=== PATIENT | female | born 1935 | race Caucasian/White ===

== ENCOUNTER → 2016-07-13 | Outpatient (CLI) | payer MEDICARE, BC ==
[~2016-07-13] MED LIST: ASPI-624 PO; ATOR40TA78 PO; CLOP75TA PO; ESOM40CA PO; HYDR12.53 PO; LISI-170 PO; LOSA25TA5 PO; NITR0.3T SL; PARO10TA3 PO; POTA10PI2 PO; POTA10TA5 PO; SERT50TA5 PO
== END | disposition home or self-care (01) ==
LOC: CFH 09:00
PROVIDERS: ATTEND Obstetrics & Gynecology Gynecology
DX: Z12.31 Encounter for screening mammogram for malignant neoplasm of breast (principal)
CPT/HCPCS: G0202

== ENCOUNTER 2016-08-12 08:17 | Emergency (ER) | payer MEDICARE, BC ==
[~2016-08-12] VITALS: Ht 149.9 cm; Wt 44.8 kg
[2016-08-12] MEDS ORDERED: LIDO1ADH44 TP (08:43)
[2016-08-12] MEDS ORDERED: ESOM40CA PO (08:44)
[2016-08-12] MEDS ORDERED: SODIUM CHLORIDE FLUSH 10ML SYR IVF ONE (09:30)
[2016-08-12 10:03] LABS: BLOOD UREA NITROGEN 19 mg/dL (7-18)
[2016-08-12 10:04] LABS: IS PT STATUS REG ER OR PRE ER? YES
[2016-08-12 10:44] VITALS: BP 126/67
[2016-08-14] MEDS ORDERED: CALC-46 PO (15:03)
[2016-08-14] MEDS ORDERED: AREDS FORMULA PO (15:03)
[2016-08-14] MEDS ORDERED: UBID100C11 PO (15:06)
[2016-08-14] MEDS ORDERED: LACT1CAP40 PO (15:06)
[2016-08-14] MEDS ORDERED: Omega PO (15:06)
[2016-08-15] MEDS ORDERED: METO25TA9 PO (09:30)
== END 2016-08-12 10:47 | disposition home or self-care (01) ==
LOC: ED 08:29
DX: R07.89 Other chest pain (principal); Z95.5 Presence of coronary angioplasty implant and graft; Z88.0 Allergy status to penicillin; Z79.82 Long term (current) use of aspirin; K21.9 Gastro-esophageal reflux disease without esophagitis; I25.2 Old myocardial infarction; I25.110 Atherosclerotic heart disease of native coronary artery with unstable angina pectoris; I10 Essential (primary) hypertension; E78.00 Pure hypercholesterolemia, unspecified; E03.9 Hypothyroidism, unspecified; Z88.8 Allergy status to other drugs, medicaments and biological substances
CPT/HCPCS: 36415; 71010; 80048; 82040; 84484; 85025; 93005; 99285

== ENCOUNTER 2016-12-21 12:04 | Observation (INO) | payer MEDICARE, BC ==
[~2016-12-21] VITALS: Ht 149.9 cm; Wt 45.4 kg
[~2016-12-21 12:04] MED LIST changes: +AREDS FORMULA PO; +CALC-46 PO; +LACT1CAP40 PO; +LIDO1ADH44 TP; +METO-282 PO; +Omega PO; +UBID100C41 PO
[2016-12-21] MEDS ORDERED: ASPIRIN 81 MG TABLET CHEW PO ONE (13:00)
[2016-12-21 13:10] LABS: HEMATOCRIT 34.5 % (34.6-47.8); HEMOGLOBIN 11.5 g/dL (11.7-16.4); WHITE BLOOD COUNT 8.6 x10^3/uL (3.4-10)
[2016-12-21 13:20] LABS: ASPARTATE AMINO TRANSFERASE 18 U/L (15-37); BLOOD UREA NITROGEN 16 mg/dL (7-18)
[2016-12-21 13:25] LABS: IS PT STATUS REG ER OR PRE ER? YES
[2016-12-21] MEDS ORDERED: ASPIRIN 81 MG TABLET CHEW ONE (14:05)
[2016-12-21] MEDS ORDERED: SODIUM CHLORIDE FLUSH 10ML SYR IVF PRN (15:30)
[2016-12-21] MEDS ORDERED: ONDANSETRON 2MG/ML, 2ML IVPush PRN (16:00)
[2016-12-21] MEDS ORDERED: HYDROcodone/APAP 5/325 TABLET PO PRN (16:00)
[2016-12-21] MEDS ORDERED: POLYETHYLENE GLYCOL 17 GM PACKET PO PRN (16:00)
[2016-12-21] MEDS ORDERED: LABETALOL 5MG/ML, 20ML IVPush PRN (16:00)
[2016-12-21] MEDS ORDERED: GUAIFENESIN/DM 200-20MG, 10ML UDC PO PRN (16:00)
[2016-12-21] MEDS ORDERED: morphine SULFATE 10 MG/ML, 1ML IVPush PRN (16:00)
[2016-12-21] MEDS ORDERED: ONDANSETRON ODT 4 MG PO PRN (16:00)
[2016-12-21 16:48] VITALS: BP 159/86
[2016-12-21] MEDS: ENOXAPARIN 40 MG/0.4 ML SQ SCH (16:57)
[2016-12-21] MEDS: SODIUM CHLORIDE 0.9% 1,000 ML IV SCH (16:57)
[2016-12-21 19:26] LABS: IS PT STATUS REG ER OR PRE ER? NO
[2016-12-21 20:54] VITALS: BP 144/72
[2016-12-21] MEDS: CALCIUM/VITAMIN D3 250-125 TABLET PO SCH (21:00)
[2016-12-21] MEDS ORDERED: METOPROLOL SUCCINATE 25 MG TAB.ER.24H PO SCH (21:00)
[2016-12-21] MEDS ORDERED: ATORVASTATIN 40 MG TABLET PO SCH (21:00)
[2016-12-21] MEDS: PANTOPRAZOLE 40 MG IV IVPush SCH (21:13)
[2016-12-22 01:22] VITALS: BP 139/78
[2016-12-22 01:35] LABS: IS PT STATUS REG ER OR PRE ER? NO
[2016-12-22] MEDS: SODIUM CHLORIDE 0.9% 1,000 ML IV SCH (03:57)
[2016-12-22 05:38] LABS: HEMATOCRIT 31.2 % (34.6-47.8); HEMOGLOBIN 10.4 g/dL (11.7-16.4); WHITE BLOOD COUNT 5.6 x10^3/uL (3.4-10)
[2016-12-22 06:08] LABS: BLOOD UREA NITROGEN 17 mg/dL (7-18)
[2016-12-22 06:09] LABS: ASPARTATE AMINO TRANSFERASE 15 U/L (15-37)
[2016-12-22 07:10] VITALS: BP 144/79
[2016-12-22 07:32] VITALS: BP 162/86
[2016-12-22] MEDS ORDERED: ASPIRIN 81 MG TABLET EC ONE (07:37)
[2016-12-22] MEDS ORDERED: CLOPIDOGREL 75 MG TABLET ONE (07:38)
[2016-12-22] MEDS ORDERED: LOSARTAN 25MG TABLET ONE (07:40)
[2016-12-22] MEDS: PANTOPRAZOLE 40 MG IV IVPush SCH (07:42)
[2016-12-22] MEDS ORDERED: NITROGLYCERIN 0.4 MG BOTTLE (25 TABS) SL ONE (07:53)
[2016-12-22] MEDS ORDERED: LISI-170 PO (07:54)
[2016-12-22] MEDS: CALCIUM/VITAMIN D3 250-125 TABLET PO SCH (07:55)
[2016-12-22] MEDS ORDERED: NITROGLYCERIN 0.4 MG BOTTLE (25 TABS) SL PRN (08:00)
[2016-12-22] MEDS ORDERED: NITROGLYCERIN 0.4 MG/SPRAY SL PRN (08:00)
[2016-12-22] MEDS ORDERED: ASPIRIN 81 MG TABLET EC PO SCH (09:00)
[2016-12-22] MEDS ORDERED: CLOPIDOGREL 75 MG TABLET PO SCH (09:00)
[2016-12-22] MEDS ORDERED: HYDROCHLOROTHIAZIDE 12.5 MG CAPSULE PO SCH (09:00)
[2016-12-22] MEDS ORDERED: SENNA/DOCUSATE TABLET PO SCH (09:00)
[2016-12-22] MEDS ORDERED: LOSARTAN 25MG TABLET PO SCH (09:00)
[2016-12-22 09:41] LABS: IS PT STATUS REG ER OR PRE ER? NO
[2016-12-22 13:41] VITALS: BP 147/80
[2016-12-22] MEDS ORDERED: LOSA25TA2 PO (14:31)
[2016-12-22] MEDS ORDERED: METO25TA91 PO (14:31)
[2016-12-22] MEDS: ENOXAPARIN 40 MG/0.4 ML SQ SCH (16:00)
== END 2016-12-22 16:20 | disposition home or self-care (01) ==
LOC: ED 15:12 → INTOOBSV 15:13 → EDIP 15:13 → ED 15:57 → 5SO 17:01 → DCLOUNGE 12-22 16:06
PROVIDERS: ADMIT Hospitalist; ATTEND Hospitalist
DX: R07.89 Other chest pain (principal); R10.9 Unspecified abdominal pain; I27.20 Pulmonary hypertension, unspecified; K21.9 Gastro-esophageal reflux disease without esophagitis; E78.5 Hyperlipidemia, unspecified; I10 Essential (primary) hypertension; E03.9 Hypothyroidism, unspecified; I25.10 Atherosclerotic heart disease of native coronary artery without angina pectoris; F41.1 Generalized anxiety disorder; D64.9 Anemia, unspecified; E78.00 Pure hypercholesterolemia, unspecified; I25.2 Old myocardial infarction; I35.1 Nonrheumatic aortic (valve) insufficiency; I65.29 Occlusion and stenosis of unspecified carotid artery; I73.9 Peripheral vascular disease, unspecified; Z66 Do not resuscitate; Z82.3 Family history of stroke; Z87.891 Personal history of nicotine dependence; Z95.5 Presence of coronary angioplasty implant and graft
CPT/HCPCS: 36415; 71010; 80053; 83735; 84439; 84443; 84484; 85025; 93005; 93306; 96361; 96372; 96374; 96375; 96376; 99285; C9113; G0378; J1650; J2405; J7030

== ENCOUNTER 2017-01-19 13:45 | Emergency (ER) | payer MEDICARE, BC ==
[~2017-01-19] VITALS: Ht 149.9 cm; Wt 44.0 kg
[~2017-01-19 13:45] MED LIST changes: +LOSA25TA2 PO; +METO25TA91 PO
[2017-01-19] MEDS ORDERED: ONDANSETRON 2MG/ML, 2ML ONE (14:29)
[2017-01-19] MEDS ORDERED: MAALOX/HYOSCYAMINE/LIDOCAINE 45 ML BTL ONE (14:29)
[2017-01-19] MEDS ORDERED: ONDANSETRON 2MG/ML, 2ML IVPush ONE (14:30)
[2017-01-19] MEDS ORDERED: MAALOX/HYOSCYAMINE/LIDOCAINE 45 ML BTL PO ONE (14:30)
[2017-01-19] MEDS ORDERED: PANT40TA5 PO (14:42)
[2017-01-19] MEDS ORDERED: ISOS30TA8 PO (14:42)
[2017-01-19 15:10] LABS: HEMATOCRIT 33.8 % (34.6-47.8); HEMOGLOBIN 11.3 g/dL (11.7-16.4)
[2017-01-19 15:12] LABS: ASPARTATE AMINO TRANSFERASE 16 U/L (15-37); BLOOD UREA NITROGEN 14 mg/dL (7-18)
[2017-01-19 15:17] LABS: IS PT STATUS REG ER OR PRE ER? YES
[2017-01-19 16:15] VITALS: BP 156/79
== END 2017-01-19 17:06 | disposition home or self-care (01) ==
LOC: ED 15:02
DX: R10.13 Epigastric pain (principal); R11.0 Nausea; K21.9 Gastro-esophageal reflux disease without esophagitis; E78.00 Pure hypercholesterolemia, unspecified; I10 Essential (primary) hypertension; I25.110 Atherosclerotic heart disease of native coronary artery with unstable angina pectoris; I25.2 Old myocardial infarction; E03.9 Hypothyroidism, unspecified; E78.5 Hyperlipidemia, unspecified; Z88.0 Allergy status to penicillin; Z88.8 Allergy status to other drugs, medicaments and biological substances; Z87.891 Personal history of nicotine dependence
CPT/HCPCS: 36415; 71010; 74176; 80053; 83880; 84484; 85025; 85610; 85730; 93005; 96374; 99285; J2405

== ENCOUNTER 2017-01-25 07:47 | Emergency (ER) | payer MEDICARE, BC ==
[~2017-01-25] VITALS: Ht 149.9 cm; Wt 43.4 kg
[~2017-01-25 07:47] MED LIST changes: +ISOS30TA8 PO; +PANT40TA5 PO
[2017-01-25] MEDS ORDERED: POTA10CA PO (08:15)
[2017-01-25] MEDS ORDERED: SODIUM CHLORIDE FLUSH 10ML SYR IVF ONE (08:30)
[2017-01-25 08:46] LABS: HEMATOCRIT 34.1 % (34.6-47.8); HEMOGLOBIN 11.4 g/dL (11.7-16.4); WHITE BLOOD COUNT 5.2 x10^3/uL (3.4-10)
[2017-01-25 08:59] LABS: ASPARTATE AMINO TRANSFERASE 21 U/L (15-37); BLOOD UREA NITROGEN 19 mg/dL (7-18)
[2017-01-25 09:04] LABS: IS PT STATUS REG ER OR PRE ER? YES
[2017-01-25 11:48] VITALS: BP_SYST 108
== END 2017-01-25 11:55 | disposition home or self-care (01) ==
LOC: ED 08:28
DX: K29.00 Acute gastritis without bleeding (principal); K21.9 Gastro-esophageal reflux disease without esophagitis
CPT/HCPCS: 36415; 71010; 72110; 80053; 81001; 83690; 84484; 85025; 85379; 87086; 87147; 93005; 99285

== ENCOUNTER → 2017-02-19 | Outpatient (CLI) | payer MEDICARE, BC ==
[~2017-02-19] MED LIST changes: +POTA10CA PO
== END | disposition home or self-care (01) ==
LOC: PETCFH 13:15
PROVIDERS: ATTEND Internal Medicine
DX: R10.10 Upper abdominal pain, unspecified (principal)
CPT/HCPCS: 78227; A9537

== ENCOUNTER → 2017-03-15 | Outpatient (CLI) | payer MEDICARE, BC ==
[2017-03-15 10:29] LABS: ANION GAP 6 mmol/L (5-15); CALCIUM 8.3 mg/dL (8.5-10.1); CHLORIDE 101 mmol/L (98-107); CREATININE 1.05 mg/dL (0.55-1.02)
== END | disposition home or self-care (01) ==
LOC: LAB 10:03
PROVIDERS: ATTEND Anesthesiology
DX: K82.8 Other specified diseases of gallbladder (principal)
CPT/HCPCS: 36415; 80048

== ENCOUNTER → 2017-05-12 | Outpatient (CLI) | payer MEDICARE, BC ==
[2017-05-12 09:02] LABS: ALANINE AMINOTRANSFERASE 24 U/L (12-78); ALBUMIN 3.7 g/dL (3.4-5.0); ANION GAP 8 mmol/L (5-15); CALCIUM 9.5 mg/dL (8.5-10.1); CHLORIDE 102 mmol/L (98-107); CHOLESTEROL, TOTAL 134 mg/dL (140-239)
[2017-05-12 09:05] LABS: ALKALINE PHOSPHATASE 84 U/L (45-117); BILIRUBIN,TOTAL 0.5 mg/dL (0.2-1.0); CHOL/HDL RATIO 2.2; HDL CHOL % 46 % (28-40); HDL CHOLESTEROL (DIRECT) 62 mg/dL (40-60); LDL CHOLESTEROL,CALCULATED 50 mg/dL (54-169); LDL/HDL RATIO 0.8 (0.5-3.0); TOTAL PROTEIN 7.5 g/dL (6.4-8.2); TRIGLYCERIDES 109 mg/dL (50-200); VLDL CHOLESTEROL 22 mg/dL (0-25)
== END ==
LOC: LAB 08:37
PROVIDERS: ATTEND Internal Medicine Cardiovascular Disease
DX: I10 Essential (primary) hypertension (principal); E78.00 Pure hypercholesterolemia, unspecified
CPT/HCPCS: 36415; 80053; 80061

== ENCOUNTER → 2017-07-15 | Outpatient (CLI) | payer MEDICARE, BC | END | disposition home or self-care (01) | LOC: CFH 09:39 | PROVIDERS: ATTEND Obstetrics & Gynecology Gynecology | DX: Z12.31 Encounter for screening mammogram for malignant neoplasm of breast (principal) | CPT/HCPCS: 77067 ==

== ENCOUNTER 2017-08-30 09:32 | Emergency (ER) | payer MEDICARE, BC ==
[~2017-08-30] VITALS: Ht 149.9 cm; Wt 43.0 kg
[2017-08-30] MEDS ORDERED: LIDOCAINE 2%, 10ML INFIL ONE (11:00)
[2017-08-30] MEDS ORDERED: LIDOCAINE-MPF 2% ,5ML ONE (11:05)
[2017-08-30 11:19] LABS: BASOPHILS # (AUTO) 0.04 x10^3/uL (0-0.1); BASOPHILS % (AUTO) 1 % (0-1); EOSINOPHILS # (AUTO) 0.14 x10^3/uL (0-0.4); EOSINOPHILS % (AUTO) 2 % (1-7); LYMPHOCYTES # (AUTO) 1.99 x10^3/uL (1-3.4); LYMPHOCYTES % (AUTO) 28 % (22-44); MD NO; MEAN CORPUSCULAR HEMOGLOBIN 31.8 pg (27.0-34.8); MEAN CORPUSCULAR HGB CONC 34.4 g/dL (32.4-35.8); MEAN CORPUSCULAR VOLUME 92.3 fL (80-100); MONOCYTES # (AUTO) 0.61 x10^3/uL (0.2-0.8); MONOCYTES % (AUTO) 9 % (2-9); NEUTROPHILS # (AUTO) 4.25 x10^3/uL (1.8-6.8); NEUTROPHILS % (AUTO) 61 % (42-75); PLATELET COUNT 196 x10^3/uL (130-400); RED BLOOD COUNT 3.81 x10^6/uL (3.82-5.3); RED CELL DISTRIBUTION WIDTH 13.5 % (9.6-15.2)
[2017-08-30 11:22] LABS: HCT (SEDRATE) 35.2 % (34.6-47.8)
[2017-08-30 11:31] LABS: ALBUMIN 3.5 g/dL (3.4-5.0); ANION GAP 4 mmol/L (5-15); CALCIUM 9.2 mg/dL (8.5-10.1); CHLORIDE 100 mmol/L (98-107)
[2017-08-30 11:34] LABS: ALANINE AMINOTRANSFERASE 31 U/L (12-78); ALKALINE PHOSPHATASE 106 U/L (45-117); BILIRUBIN,TOTAL 0.5 mg/dL (0.2-1.0); C-REACTIVE PROTEIN, QUANT 0.05 mg/dL (0.02-0.49); CREATININE 1.16 mg/dL (0.55-1.02); INTERNATIONAL NORMALIZED RATIO 0.98 (0.93-1.1); PROTHROMBIN TIME 10.2 Seconds (9.6-11.5); TOTAL PROTEIN 7.1 g/dL (6.4-8.2)
[2017-08-30 12:43] VITALS: BP 133/62
== END 2017-08-30 12:47 | disposition home or self-care (01) ==
LOC: ED 12:41
DX: G44.209 Tension-type headache, unspecified, not intractable (principal); M54.81 Occipital neuralgia; I10 Essential (primary) hypertension
CPT/HCPCS: 36415; 64405; 70450; 72125; 80053; 85025; 85610; 85651; 85730; 86140; 99285

== ENCOUNTER 2017-09-03 12:35 | Emergency (ER) | payer MEDICARE, BC ==
[~2017-09-03] VITALS: Ht 149.9 cm; Wt 45.0 kg
[2017-09-03 12:45] VITALS: BP 144/68
[2017-09-03] MEDS ORDERED: LIDODERM 5% PATCH TD ONE (15:00)
== END 2017-09-03 14:35 | disposition home or self-care (01) ==
LOC: ED 13:10
DX: G44.229 Chronic tension-type headache, not intractable (principal); I11.9 Hypertensive heart disease without heart failure; E78.5 Hyperlipidemia, unspecified; E03.9 Hypothyroidism, unspecified; I25.10 Atherosclerotic heart disease of native coronary artery without angina pectoris; E78.00 Pure hypercholesterolemia, unspecified; K21.9 Gastro-esophageal reflux disease without esophagitis; I25.2 Old myocardial infarction
CPT/HCPCS: 99283

== ENCOUNTER → 2017-12-02 | Outpatient (CLI) | payer MEDICARE, BC ==
[~2017-12-02] MED LIST changes: -LOSA25TA5 PO; +LOSA25TA6 PO
== END | disposition home or self-care (01) ==
LOC: CVU 11:38
PROVIDERS: ATTEND Surgery Vascular Surgery
DX: I65.23 Occlusion and stenosis of bilateral carotid arteries (principal); I25.2 Old myocardial infarction
CPT/HCPCS: 93880

== ENCOUNTER → 2018-02-09 | Outpatient (CLI) | payer MEDICARE, BC ==
[~2018-02-09] MED LIST changes: +HYDR12.517 PO; -HYDR12.53 PO; +LOSA25TA25 PO; -LOSA25TA6 PO
[2018-02-09 08:41] LABS: FREE T4 (FREE THYROXINE) 0.89 ng/dL (0.76-1.46); THYROID STIMULATING HORMONE 2.28 mIU/L (0.358-3.740)
== END | disposition home or self-care (01) ==
LOC: LAB 08:02
PROVIDERS: ATTEND Family Medicine
DX: E78.5 Hyperlipidemia, unspecified (principal)
CPT/HCPCS: 36415; 84439; 84443; 84480

== ENCOUNTER 2018-02-16 10:05 | Outpatient (CLI) | payer MEDICARE, BC ==
[~2018-02-16 10:05] MED LIST changes: +SERT50TA28 PO; -SERT50TA5 PO
== END 2018-02-16 23:59 | disposition home or self-care (01) ==
LOC: LAB 10:05
PROVIDERS: ATTEND Internal Medicine Gastroenterology
DX: R12 Heartburn (principal); R19.7 Diarrhea, unspecified; F10.10 Alcohol abuse, uncomplicated
CPT/HCPCS: 82274

== ENCOUNTER → 2018-02-28 | Outpatient (CLI) | payer MEDICARE, BC ==
[2018-02-28 08:06] LABS: CHOL/HDL RATIO 2.4; LDL/HDL RATIO 0.9 (0.5-3.0)
== END | disposition home or self-care (01) ==
LOC: LAB 07:38
PROVIDERS: ATTEND Internal Medicine Cardiovascular Disease
DX: I65.23 Occlusion and stenosis of bilateral carotid arteries (principal); E78.5 Hyperlipidemia, unspecified
CPT/HCPCS: 36415; 80061

== ENCOUNTER → 2018-03-08 | Outpatient (CLI) | payer MEDICARE, BC ==
[2018-03-08 07:37] LABS: ALBUMIN 3.8 g/dL (3.4-5.0); ANION GAP 2 mmol/L (5-15); CALCIUM 9.7 mg/dL (8.5-10.1); CHLORIDE 103 mmol/L (98-107)
[2018-03-08 07:41] LABS: ALANINE AMINOTRANSFERASE 30 U/L (12-78); ALKALINE PHOSPHATASE 103 U/L (45-117); BILIRUBIN,TOTAL 0.7 mg/dL (0.2-1.0); CREATININE 1.14 mg/dL (0.55-1.02); TOTAL PROTEIN 7.8 g/dL (6.4-8.2)
== END | disposition home or self-care (01) ==
LOC: LAB 07:15
PROVIDERS: ATTEND Internal Medicine Cardiovascular Disease
DX: I10 Essential (primary) hypertension (principal)
CPT/HCPCS: 36415; 80053

== ENCOUNTER → 2018-06-14 | Outpatient (CLI) | payer MEDICARE, BC ==
[2018-06-14 08:31] LABS: MEAN CORPUSCULAR HEMOGLOBIN 28.5 pg (27.0-34.8); MEAN CORPUSCULAR HGB CONC 31.5 g/dL (32.4-35.8); MEAN CORPUSCULAR VOLUME 90.6 fL (80-100); MEAN PLATELET VOLUME 6.9 fL (7.4-10.4); PLATELET COUNT 229 x10^3/uL (130-400); RED BLOOD COUNT 4.18 x10^6/uL (3.82-5.3); RED CELL DISTRIBUTION WIDTH 15.3 % (9.6-15.2)
[2018-06-14 08:41] LABS: ALANINE AMINOTRANSFERASE 34 U/L (12-78); ANION GAP 6 mmol/L (5-15); CALCIUM 9.1 mg/dL (8.5-10.1); CHLORIDE 99 mmol/L (98-107); CHOLESTEROL, TOTAL 148 mg/dL (140-239); CREATININE 1.15 mg/dL (0.55-1.02)
[2018-06-14 08:43] LABS: ALKALINE PHOSPHATASE 123 U/L (45-117); BILIRUBIN,TOTAL 0.5 mg/dL (0.2-1.0); CHOL/HDL RATIO 2.1; HDL CHOL % 47 % (28-40); HDL CHOLESTEROL (DIRECT) 70 mg/dL (40-60); LDL CHOLESTEROL,CALCULATED 55 mg/dL (54-169); LDL/HDL RATIO 0.8 (0.5-3.0); TOTAL PROTEIN 7.5 g/dL (6.4-8.2); TRIGLYCERIDES 116 mg/dL (50-200); VLDL CHOLESTEROL 23 mg/dL (0-25)
== END | disposition home or self-care (01) ==
LOC: LAB 08:15
PROVIDERS: ATTEND Internal Medicine Cardiovascular Disease
DX: I65.23 Occlusion and stenosis of bilateral carotid arteries (principal); E78.5 Hyperlipidemia, unspecified; I25.10 Atherosclerotic heart disease of native coronary artery without angina pectoris; I25.83 Coronary atherosclerosis due to lipid rich plaque; I10 Essential (primary) hypertension
CPT/HCPCS: 36415; 80053; 80061; 85027

== ENCOUNTER 2018-08-19 11:57 | Emergency (ER) | payer MEDICARE, BC ==
[~2018-08-19] VITALS: Ht 149.9 cm; Wt 46.8 kg
[2018-08-19] MEDS ORDERED: ASPIRIN 81 MG TABLET CHEW PO ONE (12:30)
[2018-08-19] MEDS ORDERED: SODIUM CHLORIDE FLUSH 10ML SYR IVF ONE (12:30)
--- NOTE | 2018-08-19 12:30 | NUR ---
assumed elle of pt. pt here for CP [employer] SPAC[employer] that resolved wth nitro. pt sstates that she has a hx of unstable angina and that she took some nitro [employer] and is currently pain free. denies any other c/o at this time. no apparent distress. sitting up on gurney with SO at bedside. pt updated on POC
[2018-08-19 12:34] LABS: BASOPHILS # (AUTO) 0.03 x10^3/uL (0-0.1); BASOPHILS % (AUTO) 0 % (0-1); EOSINOPHILS # (AUTO) 0.14 x10^3/uL (0-0.4); EOSINOPHILS % (AUTO) 2 % (1-7); LYMPHOCYTES # (AUTO) 2.14 x10^3/uL (1-3.4); LYMPHOCYTES % (AUTO) 28 % (22-44); MD NO; MEAN CORPUSCULAR HEMOGLOBIN 30.1 pg (27.0-34.8); MEAN CORPUSCULAR HGB CONC 32.8 g/dL (32.4-35.8); MEAN CORPUSCULAR VOLUME 91.8 fL (80-100); MEAN PLATELET VOLUME 7.2 fL (7.4-10.4); MONOCYTES # (AUTO) 0.63 x10^3/uL (0.2-0.8); MONOCYTES % (AUTO) 8 % (2-9); NEUTROPHILS # (AUTO) 4.61 x10^3/uL (1.8-6.8); NEUTROPHILS % (AUTO) 61 % (42-75); PLATELET COUNT 203 x10^3/uL (130-400); RED BLOOD COUNT 3.81 x10^6/uL (3.82-5.3); RED CELL DISTRIBUTION WIDTH 14.7 % (9.6-15.2)
[2018-08-19] MEDS ORDERED: ASPIRIN 81 MG TABLET CHEW ONE (12:48)
[2018-08-19 12:51] LABS: ALBUMIN 3.7 g/dL (3.4-5.0); CALCIUM 9.4 mg/dL (8.5-10.1)
[2018-08-19 12:52] LABS: ANION GAP 5 mmol/L (5-15); CHLORIDE 100 mmol/L (98-107)
[2018-08-19 12:58] LABS: CREATININE 1.11 mg/dL (0.55-1.02); TROPONIN I < 0.015 ng/mL (0.000-0.045)
[2018-08-19 14:08] VITALS: BP 146/67
--- NOTE | 2018-08-19 14:15 | NUR ---
this pt was D/C by another RN
== END 2018-08-19 14:11 | disposition home or self-care (01) ==
LOC: ED 12:43
DX: R07.2 Precordial pain (principal); K21.9 Gastro-esophageal reflux disease without esophagitis; E78.5 Hyperlipidemia, unspecified; E03.9 Hypothyroidism, unspecified; I25.2 Old myocardial infarction; I25.10 Atherosclerotic heart disease of native coronary artery without angina pectoris; F41.1 Generalized anxiety disorder; Z87.891 Personal history of nicotine dependence
CPT/HCPCS: 36415; 71045; 80048; 82040; 84484; 85025; 93005; 99284

== ENCOUNTER → 2018-12-12 | Outpatient (CLI) | payer MEDICARE, BC ==
[2018-12-12 07:53] LABS: ALBUMIN 3.8 g/dL (3.4-5.0); ANION GAP 5 mmol/L (5-15); CALCIUM 9.2 mg/dL (8.5-10.1); CHLORIDE 102 mmol/L (98-107)
[2018-12-12 07:58] LABS: ALANINE AMINOTRANSFERASE 25 U/L (12-78); ALKALINE PHOSPHATASE 126 U/L (45-117); BILIRUBIN,TOTAL 0.5 mg/dL (0.2-1.0); CHOL/HDL RATIO 2.2; CHOLESTEROL, TOTAL 140 mg/dL (140-239); CREATININE 1.13 mg/dL (0.55-1.02); HDL CHOL % 46 % (28-40); HDL CHOLESTEROL (DIRECT) 64 mg/dL (40-60); LDL CHOLESTEROL,CALCULATED 59 mg/dL (54-169); LDL/HDL RATIO 0.9 (0.5-3.0); TOTAL PROTEIN 7.5 g/dL (6.4-8.2); TRIGLYCERIDES 87 mg/dL (50-200); VLDL CHOLESTEROL 17 mg/dL (0-25)
== END | disposition home or self-care (01) ==
LOC: LAB 07:15
PROVIDERS: ATTEND Internal Medicine Cardiovascular Disease
DX: I10 Essential (primary) hypertension (principal); E78.5 Hyperlipidemia, unspecified; Z87.891 Personal history of nicotine dependence; Z82.49 Family history of ischemic heart disease and other diseases of the circulatory system; Z83.3 Family history of diabetes mellitus
CPT/HCPCS: 36415; 80053; 80061

== ENCOUNTER 2019-01-02 08:20 | Emergency (ER) | payer MEDICARE, BC ==
[~2019-01-02] VITALS: Ht 149.9 cm; Wt 46.8 kg
[2019-01-02] MEDS ORDERED: ONDANSETRON 2MG/ML, 2ML IVPush ONE (09:00)
[2019-01-02] MEDS ORDERED: SODIUM CHLORIDE FLUSH 10ML SYR IVF ONE (09:00)
[2019-01-02] MEDS ORDERED: MORPHINE SULFATE 4 MG/ML, 1ML IVPush PRN (09:00)
--- NOTE | 2019-01-02 09:10 | NUR ---
PT TO RADIOLOGY.
[2019-01-02 09:24] LABS: BASOPHILS # (AUTO) 0.02 x10^3/uL (0-0.1); BASOPHILS % (AUTO) 0 % (0-1); EOSINOPHILS # (AUTO) 0.07 x10^3/uL (0-0.4); EOSINOPHILS % (AUTO) 1 % (1-7); LYMPHOCYTES # (AUTO) 1.68 x10^3/uL (1-3.4); LYMPHOCYTES % (AUTO) 29 % (22-44); MD NO; MEAN CORPUSCULAR HEMOGLOBIN 29.9 pg (27.0-34.8); MEAN CORPUSCULAR HGB CONC 32.7 g/dL (32.4-35.8); MEAN CORPUSCULAR VOLUME 91.2 fL (80-100); MONOCYTES # (AUTO) 0.49 x10^3/uL (0.2-0.8); MONOCYTES % (AUTO) 9 % (2-9); NEUTROPHILS # (AUTO) 3.46 x10^3/uL (1.8-6.8); NEUTROPHILS % (AUTO) 60 % (42-75); PLATELET COUNT 207 x10^3/uL (130-400); RED BLOOD COUNT 4.11 x10^6/uL (3.82-5.3); RED CELL DISTRIBUTION WIDTH 14.6 % (9.6-15.2)
--- NOTE | 2019-01-02 09:27 | NUR ---
PT HERE WITH C/O BACK PAIN THAT STARTED THIS AM AT 0700 WITH RADIATION TO RIGHT SHOULDER. PT DENIES TRAUMA BUT STATES EXTENSIVE CARDIAC HX. PT DRESSED IN GOWN, ATTACHED TO MONITOR, NAD, ROOM AIR, CALL LIGHT WITHIN REACH AND AT BEDSIDE.
[2019-01-02 09:30] LABS: ALANINE AMINOTRANSFERASE 32 U/L (12-78); ALBUMIN 3.8 g/dL (3.4-5.0); ANION GAP 4 mmol/L (5-15); CALCIUM 8.8 mg/dL (8.5-10.1); CHLORIDE 100 mmol/L (98-107); CREATININE 1.06 mg/dL (0.55-1.02)
--- NOTE | 2019-01-02 09:30 | NUR ---
PT BACK FROM RADIOLOGY.
[2019-01-02 09:34] LABS: ALKALINE PHOSPHATASE 131 U/L (45-117); BILIRUBIN,TOTAL 0.5 mg/dL (0.2-1.0); TOTAL PROTEIN 7.4 g/dL (6.4-8.2); TROPONIN I < 0.015 ng/mL (0.000-0.045)
--- NOTE | 2019-01-02 09:36 | NUR ---
PIV ESTABLISHED BY THIS RN.
[2019-01-02] MEDS ORDERED: MORPHINE SULFATE 4 MG/ML, 1ML ONE (09:38)
[2019-01-02] MEDS ORDERED: ONDANSETRON 2MG/ML, 2ML ONE (09:38)
--- NOTE | 2019-01-02 09:41 | NUR ---
PT MEDICATED PER ORDERS.
--- NOTE | 2019-01-02 10:00 | NUR ---
XRAY AT BEDSIDE FOR RAD EXAMS.
--- NOTE | 2019-01-02 10:37 | NUR ---
ALL RESULTS BACK AT THIS TIME, CHART UP FOR RECHECK.
--- NOTE | 2019-01-02 10:51 | NUR ---
AT BEDSIDE FOR DISCUSSION OF TEST RESULTS AND POC.
[2019-01-02 10:57] VITALS: BP 106/57
--- NOTE | 2019-01-02 11:29 | NUR ---
Patient/Caregiver given discharge instructions and they have confirmed that they understand the instructions. Patient ambulatory with steady gait. PIV REMOVED TIP INTACT.
== END 2019-01-02 12:03 | disposition home or self-care (01) ==
LOC: ED 10:59
DX: M54.12 Radiculopathy, cervical region (principal); M25.511 Pain in right shoulder; R91.8 Other nonspecific abnormal finding of lung field; K21.9 Gastro-esophageal reflux disease without esophagitis; F41.1 Generalized anxiety disorder; I25.10 Atherosclerotic heart disease of native coronary artery without angina pectoris; I25.2 Old myocardial infarction; E78.5 Hyperlipidemia, unspecified; E78.00 Pure hypercholesterolemia, unspecified; I11.9 Hypertensive heart disease without heart failure; E03.9 Hypothyroidism, unspecified
CPT/HCPCS: 36415; 71045; 72125; 73030; 80053; 84484; 85025; 93005; 96374; 96375; 99284; J2270; J2405

== ENCOUNTER 2019-02-28 12:07 | Emergency (ER) | payer MEDICARE, BC ==
[2019-02-28] MEDS ORDERED: ASPIRIN 81 MG TABLET CHEW ONE (12:47)
[2019-02-28 12:48] LABS: BASOPHILS # (AUTO) 0.06 x10^3/uL (0-0.1); BASOPHILS % (AUTO) 1 % (0-1); EOSINOPHILS # (AUTO) 0.08 x10^3/uL (0-0.4); EOSINOPHILS % (AUTO) 1 % (1-7); LYMPHOCYTES # (AUTO) 2.55 x10^3/uL (1-3.4); LYMPHOCYTES % (AUTO) 24 % (22-44); MD NO; MEAN CORPUSCULAR HEMOGLOBIN 30.2 pg (27.0-34.8); MEAN CORPUSCULAR HGB CONC 33.1 g/dL (32.4-35.8); MEAN CORPUSCULAR VOLUME 91.3 fL (80-100); MEAN PLATELET VOLUME 7.2 fL (7.4-10.4); MONOCYTES # (AUTO) 0.87 x10^3/uL (0.2-0.8); MONOCYTES % (AUTO) 8 % (2-9); NEUTROPHILS # (AUTO) 7.26 x10^3/uL (1.8-6.8); NEUTROPHILS % (AUTO) 67 % (42-75); PLATELET COUNT 292 x10^3/uL (130-400); RED BLOOD COUNT 4.03 x10^6/uL (3.82-5.3); RED CELL DISTRIBUTION WIDTH 14.7 % (9.6-15.2)
[2019-02-28] MEDS ORDERED: ASPIRIN 81 MG TABLET CHEW PO ONE (13:00)
[2019-02-28 13:02] LABS: CHLORIDE 98 mmol/L (98-107)
[2019-02-28 13:11] LABS: ALANINE AMINOTRANSFERASE 24 U/L (12-78); ALBUMIN 3.6 g/dL (3.4-5.0); ALKALINE PHOSPHATASE 150 U/L (45-117); ANION GAP 7 mmol/L (5-15); BILIRUBIN,TOTAL 0.6 mg/dL (0.2-1.0); CREATININE 1.21 mg/dL (0.55-1.02); TOTAL PROTEIN 7.9 g/dL (6.4-8.2); TROPONIN I < 0.015 ng/mL (0.000-0.045)
--- NOTE | 2019-02-28 14:01 | NUR ---
CT WAITING FOR IV ACCESS
--- NOTE | 2019-02-28 14:22 | NUR ---
PIV INSERTED. CALLED CT TO NOTIFY THEM THAT PATIENT IS READY FOR CT.
[2019-02-28] MEDS ORDERED: OMNIPAQUE 350 MG/ML, 75ML BOTTLE ONE (14:58)
[2019-02-28 15:47] VITALS: BP 147/72
--- NOTE | 2019-02-28 17:09 | NUR ---
Patient given discharge instructions and they have confirmed that they understand the instructions. Patient ambulatory with steady gait.
== END 2019-02-28 17:12 | disposition home or self-care (01) ==
LOC: ED 17:00
DX: I25.110 Atherosclerotic heart disease of native coronary artery with unstable angina pectoris (principal); R91.1 Solitary pulmonary nodule; I10 Essential (primary) hypertension; E78.5 Hyperlipidemia, unspecified; E03.9 Hypothyroidism, unspecified; K21.9 Gastro-esophageal reflux disease without esophagitis; E78.00 Pure hypercholesterolemia, unspecified; I25.2 Old myocardial infarction; Z87.891 Personal history of nicotine dependence
CPT/HCPCS: 36415; 71045; 71260; 80053; 84484; 85025; 93005; 99284; Q9967

== ENCOUNTER 2019-04-03 08:03 | Outpatient (CLI) | payer MEDICARE, BC ==
[2019-04-03 08:40] LABS: BASOPHILS # (AUTO) 0.06 x10^3/uL (0-0.1); BASOPHILS % (AUTO) 1 % (0-1); EOSINOPHILS % (AUTO) 1 % (1-7); LYMPHOCYTES # (AUTO) 1.76 x10^3/uL (1-3.4); LYMPHOCYTES % (AUTO) 16 % (22-44); MD NO; MEAN CORPUSCULAR HEMOGLOBIN 30.2 pg (27.0-34.8); MEAN CORPUSCULAR HGB CONC 32.7 g/dL (32.4-35.8); MEAN CORPUSCULAR VOLUME 92.5 fL (80-100); MEAN PLATELET VOLUME 6.3 fL (7.4-10.4); MONOCYTES # (AUTO) 0.78 x10^3/uL (0.2-0.8); MONOCYTES % (AUTO) 7 % (2-9); NEUTROPHILS # (AUTO) 8.08 x10^3/uL (1.8-6.8); NEUTROPHILS % (AUTO) 75 % (42-75); PLATELET COUNT 386 x10^3/uL (130-400); RED BLOOD COUNT 3.73 x10^6/uL (3.82-5.3); RED CELL DISTRIBUTION WIDTH 14.9 % (9.6-15.2)
[2019-04-03 08:46] LABS: INTERNATIONAL NORMALIZED RATIO 1.01 (0.93-1.1); PROTHROMBIN TIME 10.7 Seconds (9.6-11.5)
[2019-04-03 08:48] LABS: ALANINE AMINOTRANSFERASE 30 U/L (12-78); ALBUMIN 3.1 g/dL (3.4-5.0); ANION GAP 10 mmol/L (5-15); CHLORIDE 98 mmol/L (98-107); CHOLESTEROL, TOTAL 122 mg/dL (140-239); CREATININE 1.01 mg/dL (0.55-1.02)
[2019-04-03 08:51] LABS: ALKALINE PHOSPHATASE 160 U/L (45-117); BILIRUBIN,TOTAL 0.5 mg/dL (0.2-1.0); CHOL/HDL RATIO 2.4; HDL CHOL % 41 % (28-40); HDL CHOLESTEROL (DIRECT) 50 mg/dL (40-60); LDL CHOLESTEROL,CALCULATED 54 mg/dL (54-169); LDL/HDL RATIO 1.1 (0.5-3.0); TOTAL PROTEIN 7.7 g/dL (6.4-8.2); TRIGLYCERIDES 92 mg/dL (50-200); VLDL CHOLESTEROL 18 mg/dL (0-25)
== END 2019-04-03 23:59 | disposition home or self-care (01) ==
LOC: LAB 08:03
PROVIDERS: ATTEND Family Medicine
DX: R91.8 Other nonspecific abnormal finding of lung field (principal); E78.5 Hyperlipidemia, unspecified
CPT/HCPCS: 36415; 80053; 80061; 83615; 85025; 85610; 85730